=== PATIENT | female | born 1985 | race Caucasian/White ===

== ENCOUNTER 2016-12-15 07:18 | Emergency (ER) | payer OTHER ==
[~2016-12-15] VITALS: Ht 165.1 cm; Wt 86.2 kg
[~2016-12-15 07:18] MED LIST: ADVIL200 MG PO; ANTIVERT25 MG PO; BACTRIM DS 8001 TA1 PO; CIPRO250 MG PO; DAYPRO600 M1 PO; DOXYCYCLINE HY100 M3 PO; FLEXERIL10 MG PO; IMITREX100 MG PO; LEVOFLOXACIN500 MG PO; MACROBID100 M1 PO; MIRALAX POWDER17 G1 PO; MOTRIN600 MG PO; MOTRIN800 MG PO; MULTIPLE VITAMI1 CAP; PYRIDIUM200 MG PO; ROBAXIN750 MG PO; SUMATRIPTAN SUC50 MG; ULTRAM50 MG PO; VICODIN 5/500 505 MG; ZITHROMAX250 MG PO; Zofran4 MG PO
[2016-12-15 07:24] VITALS: BP 141/76
== END 2016-12-15 08:21 | disposition home or self-care (01) ==
LOC: ED 07:18
DX: M54.6 Pain in thoracic spine (principal); F17.200 Nicotine dependence, unspecified, uncomplicated; Z88.0 Allergy status to penicillin; Z88.1 Allergy status to other antibiotic agents; Z88.2 Allergy status to sulfonamides

== ENCOUNTER 2017-02-20 12:07 | Emergency (ER) | payer SELFPAY ==
[2017-02-20 12:13] VITALS: BP 132/73
[2017-02-20 12:54] LABS: BASO # 0.1 10*3/uL (0.0-0.1); BASO % 0.6 % (0.0-1.0); EOS # 0.1 10*3/uL (0.0-0.4); EOS % 1.1 % (1.0-4.0); HEMATOCRIT 38.4 % (37.0-47.0); HEMOGLOBIN 13.1 g/dl (12.0-16.0); LYMPH # 2.2 10*3/uL (1.3-4.4); LYMPH % 20.2 % (27.0-41.0); MEAN CELL VOLUME 89.9 fl (81.0-99.0); MEAN CORPUSCULAR HGB 30.7 pg (27.0-31.0); MEAN CORPUSCULAR HGB CONC 34.1 g/dl (33.0-37.0); MEAN PLATELET VOLUME 10.6 fl (9.6-12.3); MONO # 0.8 10*3/uL (0.1-1.0); MONO % 7.2 % (3.0-9.0); NEUT # 7.6 10*3/uL (2.3-7.9); NEUT % 70.6 % (47.0-73.0); PLATELET COUNT AUTOMATED 236 10*3/uL (130-400); RED BLOOD COUNT 4.27 10*6/uL (4.10-5.10); RED CELL DISTRI WIDTH 12.8 % (0-14.5); WHITE BLOOD COUNT 10.7 10*3/uL (4.8-10.8)
[2017-02-20 12:56] LABS: BILIRUBIN NEGATIVE (NEGATIVE); BLOOD NEGATIVE (NEGATIVE); CLARITY CLEAR (CLEAR); COLOR YELLOW (YELLOW); GLUCOSE NEGATIVE (NEGATIVE); KETONE NEGATIVE (NEGATIVE); LEUKO ESTERASE NEGATIVE (NEGATIVE); NITRITE NEGATIVE (NEGATIVE); PH 5.5 (5.0-9.0); SPECIFIC GRAVITY <= 1.005 (1.005-1.030); UROBILINOGEN 0.2 E.U./dl (0.2-1.0)
[2017-02-20 13:08] LABS: BACTERIA TRACE
[2017-02-20 13:10] LABS: ALBUMIN 3.4 gm/dl (3.1-4.5); ALKALINE PHOSPHATASE 66 U/L (45-117); BUN 13 mg/dl (7-24); CHLORIDE 109 mmol/L (98-107); POTASSIUM 4.1 mmol/L (3.5-5.1); SGOT/AST 13 IU/L (3-35); SGPT/ALT 25 U/L (12-78); SODIUM 142 mmol/L (136-145)
[2017-02-20] MEDS ORDERED: ZOFRAN ODT4 MG SL (13:18)
== END 2017-02-20 13:26 | disposition home or self-care (01) ==
LOC: ED 12:07
PROVIDERS: Emergency Medicine
DX: R19.7 Diarrhea, unspecified (principal); R11.2 Nausea with vomiting, unspecified; M25.562 Pain in left knee; R10.9 Unspecified abdominal pain; F17.200 Nicotine dependence, unspecified, uncomplicated; Z88.0 Allergy status to penicillin; Z88.1 Allergy status to other antibiotic agents; Z88.2 Allergy status to sulfonamides; Z88.6 Allergy status to analgesic agent

== ENCOUNTER 2017-09-21 09:36 | Emergency (ER) | payer SELFPAY ==
[~2017-09-21] VITALS: Ht 165.1 cm; Wt 88.5 kg
[~2017-09-21 09:36] MED LIST changes: +ZOFRAN ODT4 MG SL
[2017-09-21 09:39] VITALS: BP 141/83
[2017-09-21] MEDS ORDERED: MULTIVITAMINS1 EAC5 PO (09:42)
== END 2017-09-21 10:22 | disposition home or self-care (01) ==
LOC: ED 09:36
DX: Z32.02 Encounter for pregnancy test, result negative (principal); R03.0 Elevated blood-pressure reading, without diagnosis of hypertension; Z98.890 Other specified postprocedural states; Z88.0 Allergy status to penicillin; Z88.2 Allergy status to sulfonamides; Z88.5 Allergy status to narcotic agent; Z88.8 Allergy status to other drugs, medicaments and biological substances; Z79.899 Other long term (current) drug therapy

== ENCOUNTER 2019-08-10 17:52 | Emergency (ER) | payer SELFPAY ==
[~2019-08-10] VITALS: Ht 162.5 cm; Wt 80.7 kg
[~2019-08-10 17:52] MED LIST changes: +MULTIVITAMINS1 EAC5 PO
[2019-08-10 19:14] VITALS: BP 139/55
== END 2019-08-10 19:33 | disposition short-term general hospital (02) ==
LOC: ED 17:52
DX: S61.512A Laceration without foreign body of left wrist, initial encounter (principal); Z88.5 Allergy status to narcotic agent; Z88.0 Allergy status to penicillin; Z88.2 Allergy status to sulfonamides; Z88.8 Allergy status to other drugs, medicaments and biological substances; W26.0XXA Contact with knife, initial encounter; Y93.89 Activity, other specified; Y92.89 Other specified places as the place of occurrence of the external cause; Y99.8 Other external cause status

== ENCOUNTER 2019-08-18 20:17 | Emergency (ER) | payer SELFPAY ==
[~2019-08-18] VITALS: Ht 162.5 cm; Wt 77.6 kg
[2019-08-18 20:51] VITALS: BP 121/66
[2019-08-18 22:11] LABS: HEMATOCRIT 39.6 % (37.0-47.0); HEMOGLOBIN 13.4 g/dl (12.0-16.0); MEAN CELL VOLUME 92.1 fl (81.0-99.0); MEAN CORPUSCULAR HGB 31.2 pg (27.0-31.0); MEAN CORPUSCULAR HGB CONC 33.8 g/dl (33.0-37.0); MEAN PLATELET VOLUME 10.7 fl (9.6-12.3); PLATELET COUNT AUTOMATED 244 10*3/uL (130-400); RED CELL DISTRI WIDTH 12.6 % (0-14.5); WHITE BLOOD COUNT 13.6 10*3/uL (4.8-10.8)
[2019-08-18 22:21] LABS: BILIRUBIN NEGATIVE (NEGATIVE); BLOOD NEGATIVE (NEGATIVE); CLARITY SL CLOUDY (CLEAR); COLOR YELLOW (YELLOW); GLUCOSE NEGATIVE (NEGATIVE); KETONE TRACE (NEGATIVE); LEUKO ESTERASE NEGATIVE (NEGATIVE); NITRITE NEGATIVE (NEGATIVE); UROBILINOGEN 0.2 E.U./dl (0.2-1.0)
[2019-08-18 22:26] LABS: ALBUMIN 3.9 gm/dl (3.1-4.5); ALKALINE PHOSPHATASE 62 U/L (45-117); BUN 24 mg/dl (7-24); CHLORIDE 106 mmol/L (98-107); CREATININE 0.73 mg/dL (0.55-1.02); POTASSIUM 3.9 mmol/L (3.5-5.1); SGOT/AST 9 IU/L (3-35); SGPT/ALT 19 U/L (12-78); SODIUM 138 mmol/L (136-145); TOTAL PROTEIN 7.4 gm/dL (6.4-8.2)
[2019-08-18 22:29] LABS: BACTERIA 2+; EPITHELIAL CELLS 15-20; MUCOUS 1+
[2019-08-18 22:30] LABS: PLATELET SUFFICIENCY NORMAL (NORMAL); TOTAL CELLS COUNTED 100 #CELLS
[2019-08-18] MEDS ORDERED: CIPRO500 MG PO (23:05)
== END 2019-08-18 23:36 | disposition home or self-care (01) ==
LOC: ED 20:17
PROVIDERS: Emergency Medicine
DX: K52.9 Noninfective gastroenteritis and colitis, unspecified (principal); N39.0 Urinary tract infection, site not specified; Z88.0 Allergy status to penicillin; Z88.2 Allergy status to sulfonamides; Z88.6 Allergy status to analgesic agent; Z79.899 Other long term (current) drug therapy

== ENCOUNTER 2019-12-26 17:15 | Emergency (ER) | payer SELFPAY ==
[~2019-12-26] VITALS: Ht 162.5 cm; Wt 80.7 kg
[~2019-12-26 17:15] MED LIST changes: +CIPRO500 MG PO
[2019-12-26 17:23] VITALS: BP 144/73
[2019-12-26 18:52] LABS: BASO % 0.5 % (0.0-1.0); EOS # 0.1 10*3/uL (0.0-0.4); EOS % 1.2 % (1.0-4.0); HEMATOCRIT 37.6 % (37.0-47.0); LYMPH # 2.4 10*3/uL (1.3-4.4); LYMPH % 28.3 % (27.0-41.0); MEAN CELL VOLUME 90.2 fl (81.0-99.0); MEAN CORPUSCULAR HGB 30.2 pg (27.0-31.0); MEAN CORPUSCULAR HGB CONC 33.5 g/dl (33.0-37.0); MEAN PLATELET VOLUME 10.9 fl (9.6-12.3); MONO # 0.5 10*3/uL (0.1-1.0); MONO % 6.4 % (3.0-9.0); NEUT # 5.4 10*3/uL (2.3-7.9); NEUT % 63.4 % (47.0-73.0); PLATELET COUNT AUTOMATED 239 10*3/uL (130-400); RED BLOOD COUNT 4.17 10*6/uL (4.10-5.10); RED CELL DISTRI WIDTH 13.2 % (0-14.5); WHITE BLOOD COUNT 8.5 10*3/uL (4.8-10.8)
[2019-12-26 19:08] LABS: ALBUMIN 3.7 gm/dl (3.1-4.5); ALKALINE PHOSPHATASE 54 U/L (45-117); BUN 11 mg/dl (7-24); CHLORIDE 110 mmol/L (98-107); CREATININE 0.65 mg/dL (0.55-1.02); LIPASE 77 U/L (73-393); POTASSIUM 3.5 mmol/L (3.5-5.1); SGOT/AST 13 IU/L (3-35); SODIUM 139 mmol/L (136-145); TOTAL PROTEIN 6.9 gm/dL (6.4-8.2)
[2019-12-26 19:09] LABS: SGPT/ALT 21 U/L (12-78)
[2019-12-26 19:20] LABS: BACTERIA TRACE; BILIRUBIN NEGATIVE (NEGATIVE); BLOOD NEGATIVE (NEGATIVE); CLARITY CLEAR (CLEAR); COLOR YELLOW (YELLOW); GLUCOSE NEGATIVE (NEGATIVE); KETONE NEGATIVE (NEGATIVE); LEUKO ESTERASE NEGATIVE (NEGATIVE); NITRITE NEGATIVE (NEGATIVE); SPECIFIC GRAVITY 1.005 (1.005-1.030); UROBILINOGEN 0.2 E.U./dl (0.2-1.0)
[2019-12-26] MEDS ORDERED: DICYCLOMINE HCL10 MG PO (20:24)
== END 2019-12-26 20:35 | disposition home or self-care (01) ==
LOC: ED 17:15
PROVIDERS: Physician Assistant
DX: M54.6 Pain in thoracic spine (principal); F17.200 Nicotine dependence, unspecified, uncomplicated; Z88.0 Allergy status to penicillin; Z88.8 Allergy status to other drugs, medicaments and biological substances; Z88.2 Allergy status to sulfonamides; Z88.5 Allergy status to narcotic agent; Z79.899 Other long term (current) drug therapy

== ENCOUNTER 2020-01-28 11:08 | Emergency (ER) | payer SELFPAY ==
[~2020-01-28] VITALS: Ht 162.5 cm; Wt 76.2 kg
[~2020-01-28 11:08] MED LIST changes: +DICYCLOMINE HCL10 MG PO
[2020-01-28 11:13] VITALS: BP 129/73
[2020-01-28] MEDS ORDERED: Motrin,Rufen800 MG PO (13:25)
[2020-01-28] MEDS ORDERED: CLARITIN-D 121 EACH PO (13:26)
== END 2020-01-28 13:35 | disposition home or self-care (01) ==
LOC: ED 11:08
DX: S29.012A Strain of muscle and tendon of back wall of thorax, initial encounter (principal); H83.8X9 Other specified diseases of inner ear, unspecified ear; F17.200 Nicotine dependence, unspecified, uncomplicated; Z88.5 Allergy status to narcotic agent; Z88.2 Allergy status to sulfonamides; Z88.8 Allergy status to other drugs, medicaments and biological substances; Z88.0 Allergy status to penicillin; Z79.899 Other long term (current) drug therapy; X58.XXXA Exposure to other specified factors, initial encounter; Y93.89 Activity, other specified; Y92.89 Other specified places as the place of occurrence of the external cause; Y99.8 Other external cause status

== ENCOUNTER 2020-01-31 10:53 | Emergency (ER) | payer SELFPAY ==
[~2020-01-31] VITALS: Ht 162.5 cm; Wt 75.3 kg
[~2020-01-31 10:53] MED LIST changes: +CLARITIN-D 121 EACH PO; +Motrin,Rufen800 MG PO
[2020-01-31 11:01] VITALS: BP 112/62
[2020-01-31 11:10] LABS: BASO % 0.7 % (0.0-1.0); EOS # 0.1 10*3/uL (0.0-0.4); EOS % 1.2 % (1.0-4.0); HEMATOCRIT 40.7 % (37.0-47.0); LYMPH # 1.9 10*3/uL (1.3-4.4); LYMPH % 33.6 % (27.0-41.0); MEAN CELL VOLUME 89.5 fl (81.0-99.0); MEAN CORPUSCULAR HGB 29.9 pg (27.0-31.0); MEAN CORPUSCULAR HGB CONC 33.4 g/dl (33.0-37.0); MEAN PLATELET VOLUME 10.8 fl (9.6-12.3); MONO # 0.4 10*3/uL (0.1-1.0); MONO % 6.9 % (3.0-9.0); NEUT # 3.3 10*3/uL (2.3-7.9); NEUT % 57.4 % (47.0-73.0); PLATELET COUNT AUTOMATED 249 10*3/uL (130-400); RED BLOOD COUNT 4.55 10*6/uL (4.10-5.10); RED CELL DISTRI WIDTH 12.4 % (0-14.5); WHITE BLOOD COUNT 5.7 10*3/uL (4.8-10.8)
[2020-01-31 11:20] LABS: ACT PARTIAL THROMBO TIME 26.8 SECONDS (20.0-32.1)
[2020-01-31 11:26] LABS: ALBUMIN 4.1 gm/dl (3.1-4.5); ALKALINE PHOSPHATASE 54 U/L (45-117); BUN 9 mg/dl (7-24); CHLORIDE 110 mmol/L (98-107); CREATININE 0.78 mg/dL (0.55-1.02); POTASSIUM 3.4 mmol/L (3.5-5.1); SGOT/AST 10 IU/L (3-35); SGPT/ALT 19 U/L (12-78); SODIUM 139 mmol/L (136-145); TOTAL PROTEIN 7.6 gm/dL (6.4-8.2)
[2020-01-31 11:28] LABS: TROPONIN I < 0.015 ng/ml (<0.045)
== END 2020-01-31 13:46 | disposition home or self-care (01) ==
LOC: ED 10:53
PROVIDERS: Emergency Medicine
DX: T50.905A Adverse effect of unspecified drugs, medicaments and biological substances, initial encounter (principal); Z79.899 Other long term (current) drug therapy; Z88.0 Allergy status to penicillin; Z88.5 Allergy status to narcotic agent; Z88.2 Allergy status to sulfonamides; Z88.8 Allergy status to other drugs, medicaments and biological substances; Y92.89 Other specified places as the place of occurrence of the external cause

== ENCOUNTER 2022-10-19 11:58 | Emergency (ER) | payer SELFPAY ==
[~2022-10-19] VITALS: Ht 165.1 cm; Wt 70.3 kg
[2022-10-19 12:04] VITALS: BP 147/72
[2022-10-19 12:24] LABS: BASO # 0.1 10*3/uL (0.0-0.1); BASO % 0.9 % (0.0-1.0); EOS # 0.1 10*3/uL (0.0-0.4); EOS % 1.6 % (1.0-4.0); HEMATOCRIT 41.4 % (37.0-47.0); LYMPH # 1.8 10*3/uL (1.3-4.4); MEAN CELL VOLUME 91.8 fl (81.0-99.0); MEAN CORPUSCULAR HGB 31.5 pg (27.0-31.0); MEAN CORPUSCULAR HGB CONC 34.3 g/dl (33.0-37.0); MEAN PLATELET VOLUME 10.1 fl (9.6-12.3); MONO # 0.5 10*3/uL (0.1-1.0); MONO % 6.6 % (3.0-9.0); NEUT # 4.3 10*3/uL (2.3-7.9); NEUT % 63.6 % (47.0-73.0); PLATELET COUNT AUTOMATED 248 10*3/uL (130-400); RED BLOOD COUNT 4.51 10*6/uL (4.10-5.10); RED CELL DISTRI WIDTH 12.5 % (0-14.5); WHITE BLOOD COUNT 6.8 10*3/uL (4.8-10.8)
[2022-10-19 12:43] LABS: ALKALINE PHOSPHATASE 52 U/L (46-116); BUN 8 mg/dl (9-23); CHLORIDE 107 mmol/L (98-107); POTASSIUM 3.9 mmol/L (3.4-5.1); SGPT/ALT 18 U/L (10-49); THYROID STIM HORMONE (HS) 1.603 uIU/ml (0.550-4.780); TOTAL PROTEIN 6.8 gm/dL (6.0-8.0)
== END 2022-10-19 13:31 | disposition home or self-care (01) ==
LOC: ED 11:58
PROVIDERS: Internal Medicine
DX: R61 Generalized hyperhidrosis (principal)

== ENCOUNTER 2023-02-23 07:12 | Emergency (ER) | payer BC ==
[~2023-02-23] VITALS: Ht 165.1 cm; Wt 71.7 kg
[2023-02-23 07:23] VITALS: BP 118/68
[2023-02-23] MEDS ORDERED: FLUTICASONE-SAL12 GM INH (07:24)
[2023-02-23] MEDS ORDERED: BENZONATATE200 MG PO (07:24)
[2023-02-23] MEDS ORDERED: IPRATROPIUM BRO15 ML INH (07:25)
[2023-02-23] MEDS ORDERED: MONTELUKAST SOD10 MG PO (07:25)
[2023-02-23] MEDS ORDERED: WELLBUTRIN SR100 MG PO (07:58)
[2023-02-23] MEDS ORDERED: AVPAK AZITHROM250 M1 PO (07:58)
== END 2023-02-23 08:25 | disposition home or self-care (01) ==
LOC: ED 07:12
DX: J40 Bronchitis, not specified as acute or chronic (principal); R07.89 Other chest pain; Z88.0 Allergy status to penicillin; Z88.2 Allergy status to sulfonamides; Z88.5 Allergy status to narcotic agent; Z98.890 Other specified postprocedural states; F17.200 Nicotine dependence, unspecified, uncomplicated

== ENCOUNTER 2023-07-19 17:56 | Emergency (ER) | payer BC ==
[~2023-07-19] VITALS: Ht 162.5 cm; Wt 78.9 kg
[~2023-07-19 17:56] MED LIST changes: +AVPAK AZITHROM250 M1 PO; +BENZONATATE200 MG PO; +FLUTICASONE-SAL12 GM INH; +IPRATROPIUM BRO15 ML INH; +MONTELUKAST SOD10 MG PO; +WELLBUTRIN SR100 MG PO
[2023-07-19 18:14] VITALS: BP 123/56
[2023-07-19] MEDS ORDERED: PREDNISONE20 M1 PO (18:22)
== END 2023-07-19 18:30 | disposition home or self-care (01) ==
LOC: ED 17:56
DX: L50.9 Urticaria, unspecified (principal); Z88.0 Allergy status to penicillin; Z88.2 Allergy status to sulfonamides; Z88.5 Allergy status to narcotic agent; Z88.8 Allergy status to other drugs, medicaments and biological substances; Z98.890 Other specified postprocedural states

== ENCOUNTER 2023-12-16 04:21 | Emergency (ER) | payer BC ==
[~2023-12-16] VITALS: Ht 165.1 cm; Wt 80.7 kg
[~2023-12-16 04:21] MED LIST changes: +PREDNISONE20 M1 PO
[2023-12-16 04:30] VITALS: BP 109/62
[2023-12-16] MEDS ORDERED: Ondansetron Hydrochloride 4 MG/2 ML VIAL IV ONE (04:35)
[2023-12-16] MEDS ORDERED: Ketorolac Tromethamine 30 MG/ML VIAL IV ONE (04:35)
[2023-12-16] MEDS ORDERED: SODIUM CHLORIDE 0.9% 1,000 ML IV ONE (04:35)
[2023-12-16] MEDS ORDERED: diphenhydrAMINE hydrochloride 50 MG/ML VIAL IV ONE (04:35)
[2023-12-16] MEDS ORDERED: Ondansetron4 MG PO (06:06)
== END 2023-12-16 06:16 | disposition home or self-care (01) ==
LOC: ED 04:21
DX: G43.909 Migraine, unspecified, not intractable, without status migrainosus (principal); R11.2 Nausea with vomiting, unspecified; Z88.0 Allergy status to penicillin; Z88.2 Allergy status to sulfonamides; Z88.5 Allergy status to narcotic agent; Z79.899 Other long term (current) drug therapy; Z79.2 Long term (current) use of antibiotics; Z87.42 Personal history of other diseases of the female genital tract